=== PATIENT | male | born 1990 | race Caucasian/White ===

== ENCOUNTER 2020-08-05 16:58 | Emergency (ER) | payer OTHER, SELFPAY ==
--- NOTE | ~2020-08-05 | XR_ITS ---
EXAMINATION: XR chest 1V portable DATE: 08/05/2020 17:46 INDICATION: Syncopal episode with fall post drug use. TECHNIQUE: frontal view of the chest was obtained. COMPARISON: None FINDINGS: The lungs are clear with no focal airspace opacities, pulmonary edema, pleural effusion or pneumothor ax. The cardiomediastinal silhouette is normal. Visualized bones and soft tissues are unremarkable. IMPRESSION: 1. No acute cardiopulmonary disease. Reviewed, dictated and finalized at location A. ER [employer]ODUCTION [employer]ATION
--- NOTE | ~2020-08-05 | CT_ITS ---
EXAMINATION: CT cervical spine wo con DATE: 08/05/2020 17:47 INDICATION: Neck pain post syncopal episode and fall TECHNIQUE: Computed tomography (CT) of the cervical spine was performed without intravenous contrast. Automated exposure control and iterative reconstruction technique were employed. The dose-length pro duct was 496.51 mGy-cm. COMPARISON: None FINDINGS: Minimal cervical thoracic dextrocurvature. Sagittal alignment is normal. Vertebral body and disc heig hts are normal. No fracture. Cervical uncovertebral and facet joints are normal. No central canal or neural foraminal stenosis. Cervical soft tissues are unremarkable. Minimal gas within the left subcla vian vein likely related to peripheral IV placement. His last airway and apices of the lungs are carolin r. IMPRESSION: 1. Minimal cervical thoracic dextrocurvature which may be positional. No fracture or other osseous ab normality. Reviewed, dictated and finalized at location A. [employer]CTION STAGE MANAGER IMPRESSION: 1. Minimal cervical thoracic dextrocurvature which may be positional. No fractu re or other osseous abnormality.
--- NOTE | ~2020-08-05 | CT_ITS ---
EXAMINATION: CT brain wo con DATE: 08/05/2020 17:45 INDICATION: Overdose with syncopal episode and fall. TECHNIQUE: Computed tomography (CT) of the head was performed without intravenous contrast. Sagittal and coronal reconstructions were performed. The mA was adjusted according to patient size. Iterative reconstruction technique was employed. The dose-length product was 681.00 mGy-cm. COMPARISON: None FINDINGS: No acute intracranial hemorrhage, acute infarction or abnormal extra axial fluid collection. Ventricl es are normal and symmetric. No mass/mass effect. The orbits, paranasal sinuses and mastoid air cells are normal. IMPRESSION: 1. Normal head CT. Reviewed, dictated and finalized at location A. ENTER MATE IMPRESSION: 1. Normal head CT.
[2020-08-05 16:58] VITALS: BP 147/104; PULSE 114; RESP 10; TEMP 36.7; O2SAT 95
--- NOTE | 2020-08-05 17:08 | ECG_ITS ---
Measurements Intervals [place] Rate: 106 P: 51 IA: 163 QRS: 97 QRSD: 104 T: 52 QT: 349 QTc: 465 Interpretive Statements SINUS TACHYCARDIA RIGHT AXIS DEVIATION BASELINE WANDER- II, III, AVF, V4-V6 ABNORMAL ECG Electronically Signed On 08-06-2020 7:26:00 [employer]ET [employer]CTION [employer] by Woodrow Roach D.O.
--- NOTE | 2020-08-05 17:08 | ED.OVERDOSE ---
HPI - Overdose General Chief Complaint: Overdose Stated Complaint: ambulance Time Seen by Provider: 08/05/20 17:08 Source: EMS Mode of arrival: EMS History of Present Illness HPI Narrative: 30-year-old male that presents via EMS after overdose with heroin /fentanyl earlier today EMS was called to his home and CPR was administered and Narcan was administered and the patient became more responsive. Patient took unknown amount of hair when received couple of doses of Narcan in the emergency department and was even more alert, patient denied any suicidal intention no suicidal thoughts no homicidal thoughts. Patient was complaining of some mild chest discomfort after EMS perform CPR. Otherwise the patient did not have additional pain no headache find the no neck pain no abdominal pain. Patient did start having some nausea vomiting which was relieved with Narcan. Currently there is no fever chills no shortness of breath and no diarrhea constipation. MD complaint: accidental overdose Onset (ago): hour(s) Timing confirmed by: family member Related Data Home Medications Medication Instructions Recorded Confirmed No Home Medications 08/05/20 08/05/20 Allergies Allergy/AdvReac Type Severity Reaction Status Date / Time No Known Allergies Allergy Verified 08/05/20 17:15 Review of Systems Review of Systems: All systems reviewed & are unremarkable except as noted in HPI and below PMFSH Past Medical History Medical History Patient denies medical problems Exam Const: General: confusion and ill appearing Limitations: altered mental status HENMT: Other: had some nasal epistaxis after nasal trumpet was placed by EMS has subsequently been removed and bleeding has stopped Eyes: Conjunctivae: conjunctivae normal Pupils: Equal, round and reactive pupils present EOM: EOMs intact bilaterally Direct Ophthalmoscopy: no photophobia Neck: Neck: normal visual inspection, no lymphadenopathy and no meningeal signs Chest: Chest palpation & inspection: normal inspection of the chest Other: left chest wall tenderness with palpation Resp: Effort & Inspection: normal respiratory effort Auscultation: clear to auscultation bilaterally Cardio: Rate: regular rate Rhythm: regular rhythm GI: GI Palp: Yes Soft to palpation Auscultation: normal bowel sounds Back/Spine/Pelvis: Back: no CVA tenderness Skin: General skin exam: normal color Rashes: no rashes Neuro: General: patient oriented x3, moves all extremities, no meningeal signs and no focal motor deficits Psych: Appearance: grossly normal Mental Status: mental status grossly normal Thought content: Yes Normal thought content present Course Course Emergency Course: reassessment of patient more alert after receiving Narcan, did have initially some nausea vomiting and receive Zofran currently is alert awake responsive appropriately and wishes to to go home. Critical Care Time Critical Care Time Critical Care Time: No Discharge Plan Discharge Clinical Impression: Drug overdose Qualifiers: Encounter type: initial encounter Injury intent: accidental or unintentional Qualified Code(s): T50.901A - Poisoning by unspecified drugs, medicaments and biological substances, accidental (unintentional), initial encounter Patient Disposition: Home, Self-Care Condition: Stable Instructions: Antibiotic Form, Adult Overdose (ED) Additional Instructions: Follow-up with primary care physician Within 1 to 2 weeks further evaluation and treatment. Prescriptions: No Action No Home Medications RF: 0 Follow-up/Referrals: UNKNOWN,DOCTOR [Primary Care Provider] - Time of Disposition: 18:17
[2020-08-05] MEDS: NALOXONE HCL INJ 2 MG/2 ML AMP IV PUSH (17:10)
[2020-08-05] MEDS: ONDANSETRON INJ 4 MG/2 ML VIAL IV PUSH (17:15)
[2020-08-05 17:30] LABS: Basophils Absolute Auto 0.08 K/mm3 (0.00-0.10); Basophils Percent Auto 0.8 % (0.0-1.0); Eosinophils Percent Auto 7.1 % (1.0-6.0); Hematocrit 45.9 % (40.0-54.0); Hemoglobin 15.2 g/dL (14.0-18.0); Immature Granulocyte Absolute 0.02 K/mm3 (0.00-0.00); Immature Granulocyte Percent A 0.2 % (0.0-0.0); Lymphocytes Absolute Auto 4.75 K/mm3 (1.10-4.50); Lymphocytes Percent Auto 48.4 % (18.0-42.0); Mean Corpuscular HGB Conc 33.1 g/dL (32.0-36.0); Mean Corpuscular Volume 87.4 fL (78.0-102.0); Mean Platelet Volume 9.7 fl (8.7-11.0); Monocytes Absolute Auto 0.49 K/mm3 (0.10-0.90); Neutrophils Absolute Auto 3.8 K/mm3 (1.7-7.2); Neutrophils Percent Auto 38.5 % (50.0-70.0); Platelet Count Result 224 K/mm3 (150-420); Red Blood Count 5.25 M/mm3 (4.70-6.10); Red Cell Distribution Width 12.4 % (11.6-14.4); White Blood Count 9.8 K/mm3 (4.8-10.8)
[2020-08-05 17:44] LABS: Partial Thromboplastin Time 24.5 SEC (23.90-30.70); Prothrombin Time 11.3 Seconds (9.50-12.10)
[2020-08-05] MEDS: SODIUM CHLORIDE 0.9% IV 1,000 ML 999 ML IV CONT (17:46)
[2020-08-05 17:48] LABS: Alanine Aminotransferase 23 U/L (16-63); Albumin Level 3.8 g/dL (3.4-5.0); Alkaline Phosphatase 100 U/L (46-116); Anion Gap 6 mmol/L (8-16); Aspartate Amino Transferase 15 U/L (15-37); Bilirubin,Total 0.2 mg/dL (0.00-1.00); Blood Urea Nitrogen 17 mg/dL (7-18); Calcium 8.9 mg/dL (8.5-10.1); Carbon Dioxide 31 mmol/L (21-32); Chloride 105 mmol/L (98-108); Estimated CRCL calculation 90 ml/min; Estimated Glomerular Filt Rate > 60; Glucose 183 mg/dL (70-99); Osmolality Calculated 300 mOsm/kg (285-295); Potassium 4.2 mmol/L (3.5-5.1); Sodium 142 mmol/L (136-145)
[2020-08-05 17:50] LABS: Ammonia < 10 umol/L (11-32); Salicylate 1.5 mg/dL (2.8-20.0)
[2020-08-05 17:51] LABS: Acetaminophen < 1 ug/mL (10-30); Ethanol < 3 mg/dL (0-6); Lactic Acid Reflex 1.8 mmol/L (0.4-2.0)
[2020-08-05 18:00] LABS: Magnesium 2.1 mg/dL (1.8-2.4)
[2020-08-05 18:01] LABS: Creatine Kinase 110 U/L (39-308)
[2020-08-05 18:20] VITALS: BP 126/82; PULSE 102; RESP 20; O2SAT 100
== END 2020-08-05 18:21 | disposition home or self-care (01) ==
PROVIDERS: Emergency Provider Emergency Medicine
DX: T50.901A Poisoning by unspecified drugs, medicaments and biological substances, accidental (unintentional), initial encounter (principal)
CPT/HCPCS: 36415; 70450; 71045; 72125; 80053; 80307; 82140; 82550; 83605; 83735; 85025; 85610; 85730; 93005; 96361; 96374; 96375; 99284; J2310; J2405; J7030